=== PATIENT | male | born 1985 | race Caucasian/White ===

== ENCOUNTER 2018-08-13 10:11 | Emergency (ER) | payer OTHER ==
[~2018-08-13] VITALS: Ht 185.4 cm; Wt 61.2 kg
[~2018-08-13 10:11] MED LIST: CEPH500 PO; Flexeril 10 mg10 MG PO; HYDACE5 PO; NAPR550 PO; Naprosyn500 MG PO; OXYACE5T PO
[2018-08-13] MEDS ORDERED: ALPR1 PO (10:45)
[2018-08-13] MEDS ORDERED: SERT25 (10:45)
== END 2018-08-13 12:32 | disposition home or self-care (01) ==
LOC: ER 10:11
DX: R07.81 Pleurodynia (principal); F17.200 Nicotine dependence, unspecified, uncomplicated; Z79.899 Other long term (current) drug therapy
CPT/HCPCS: 71046; 73030; 81000; 99284-25